=== PATIENT | male | born 1970 | race Caucasian/White ===

== ENCOUNTER 2019-08-25 16:54 | Emergency (ER) | payer BC ==
[~2019-08-25] VITALS: Ht 177.8 cm; Wt 86.2 kg
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
[2019-08-25] MEDS ORDERED: OMEPRAZOLE 20 M20 M1 PO (17:28)
[2019-08-25] MEDS ORDERED: NORCO 5-325 TA1 EAC1 PO (20:08)
[2019-08-25] MEDS ORDERED: KEFLEX500 M1 PO (20:08)
[2019-08-25 20:14] VITALS: BP 122/74
== END 2019-08-25 20:14 | disposition home or self-care (01) ==
LOC: ER 16:54
DX: S02.2XXA Fracture of nasal bones, initial encounter for closed fracture (principal); S01.21XA Laceration without foreign body of nose, initial encounter; S01.511A Laceration without foreign body of lip, initial encounter; S01.111A Laceration without foreign body of right eyelid and periocular area, initial encounter; S80.212A Abrasion, left knee, initial encounter; S80.211A Abrasion, right knee, initial encounter; M79.641 Pain in right hand; M25.511 Pain in right shoulder; Z79.899 Other long term (current) drug therapy; V89.9XXA Person injured in unspecified vehicle accident, initial encounter; Y93.39 Activity, other involving climbing, rappelling and jumping off; Y92.64 Mine or pit as the place of occurrence of the external cause; Y99.8 Other external cause status